=== PATIENT | female | born 1995 | race Caucasian/White ===

== ENCOUNTER 2023-05-18 14:25 | Outpatient (CLI) | payer MEDICAID, SELFPAY ==
[2023-05-18 14:58] VITALS: BMI 38.2
[2023-05-18 14:59] VITALS: TEMP 36.8
[2023-05-18 15:01] VITALS: PULSE 87; O2SAT 98
[2023-05-18 15:03] VITALS: BP 133/88; PULSE 79
[2023-05-18 15:23] VITALS: BP 145/87; PULSE 74
[2023-05-18 15:28] VITALS: BP 139/84; PULSE 83
[2023-05-18 15:43] VITALS: BP 127/78; PULSE 84
--- NOTE | 2023-06-11 13:30 | OB.TRI.HP_ITS ---
HPI - General General Date of Admission: 05/18/23 Date of Service: 05/18/23 HPI Narrative [place] BERRIOS, is a 28 F who presents at 33 weeks gestation to labor and delivery with some contractions. She sees a physician in [place], FABIAN FUNES MD, but is in [place] and decided to come in to our labor and delivery department. Patient denies any PIH symptoms and her has been unremarkable to this point. PFSH PFSH Home Medications bupropion HCl 75 mg tablet 150 mg PO DAILY 05/18/23 [History Last Taken 05/18/23 09:00] sertraline 50 mg tablet (Zoloft) 50 mg PO DAILY 05/18/23 [History Last Taken 05/18/23 09:00] Allergy/AdvReac Type Severity Reaction Status Date / Time No Known Allergies Allergy Verified 05/18/23 15:15 NST Assessment Assessment Detail: Reactive and reassuring. No contractions noted. Assessment & Plan (1) contractions: PLAN: Plan Transient contractions and 33-week gestation patient. Reactive nonstress test. No contractions noted. Cervix nonthreatening. Patient released to home with instructions to follow-up with her usual physician during the next week.
== END 2023-05-18 16:10 | disposition home or self-care (01) ==
LOC: WPOUT 14:47 → WP 14:47
PROVIDERS: PCP Family Medicine; Referring Provider Obstetrics & Gynecology; Visit Provider Obstetrics & Gynecology
DX: O47.9 False labor, unspecified (principal); Z3A.00 Weeks of gestation of pregnancy not specified
CPT/HCPCS: 59050; 99221; G0378